=== PATIENT | female | born 1935 | race Hispanic/Latino ===

== ENCOUNTER 2018-01-17 22:57 | Emergency (ER) | payer MEDICARE, MEDICAID ==
[2018-01-18] MEDS ORDERED: Cyclobenzaprine 10 MG TAB ONE (00:20)
[2018-01-18] MEDS ORDERED: Dexamethasone 4 mg/ml Vial ONE (00:20)
[2018-01-18] MEDS ORDERED: Ketorolac Tromethamine 30 MG/ML VIAL ONE (00:20)
== END 2018-01-18 00:43 | disposition home or self-care (01) ==
LOC: ERS 22:57
DX: M62.838 Other muscle spasm (principal); E78.5 Hyperlipidemia, unspecified; I10 Essential (primary) hypertension; Z79.82 Long term (current) use of aspirin; Z79.899 Other long term (current) drug therapy
CPT/HCPCS: 96372; J1100; J1885

== ENCOUNTER 2018-01-20 11:54 | Outpatient (CLI) | payer MEDICARE, MEDICAID ==
--- NOTE | 2018-01-20 15:04 | MRI ---
MRI CERVICAL SPINE WITHOUT CONTRAST: Date: 01/20/18 HISTORY: M54.12, cervical radiculopathy. COMPARISON: None. FINDINGS: The background marrow signal is normal. Marrow signal of the clivus is normal. There appears to be an empty sella with flattening of the pituitary gland. Levels are as follows: C2-3: Mild disc desiccation. Moderate facet arthropathy. No significant neural foraminal or spinal canal na rrowing. C3-4: Mild degenerative disc space height loss. There is moderate facet arthrosis bilaterally. There is mod erate left and mild right-sided neural foraminal narrowing. Low grade circumferential disc bulge. Spi nal canal is not significantly narrowed. C4-5: Moderate degenerative disc space disease. Moderate uncinate process hypertrophy. Moderate facet arthr opathy. The spinal canal measures approximately 7.0 mm. There is moderate left and mild right-sided n eural foraminal narrowing. C5-6: Advanced degenerative disc space disease. Uncinate process hypertrophy. The spinal canal measures madelaine roximately 6.0 mm. Mild ligamentum flavum hypertrophy. Mild bilateral neural foraminal narrowing. C6-7: Mild disc desiccation. No significant neural foraminal or spinal canal narrowing. C7-T1: There is anterolisthesis of C7 over T1 approximately 4.0 mm with moderate facet arthrosis. Spinal can al centrally narrowed. IMPRESSION: Mild to moderate spondylosis as described above, worst at C5-6, with near complete effacement of the dorsal and ventral CSF space narrowing the spinal canal just under 6 mm. POS: [facility]
== END 2018-01-20 11:55 | disposition home or self-care (01) ==
LOC: MRI 11:54
PROVIDERS: ATTEND Family Medicine
DX: M47.22 Other spondylosis with radiculopathy, cervical region (principal); M48.02 Spinal stenosis, cervical region
CPT/HCPCS: 72141

== ENCOUNTER 2018-03-24 11:46 | Outpatient (CLI) | payer MEDICARE, MEDICAID | END 2018-03-24 11:47 | disposition home or self-care (01) | LOC: BICRAD 11:46 | PROVIDERS: ATTEND Specialist | DX: M47.892 Other spondylosis, cervical region (principal); M43.12 Spondylolisthesis, cervical region; M48.02 Spinal stenosis, cervical region | CPT/HCPCS: 72050 ==

== ENCOUNTER 2019-03-06 14:19 | Outpatient (CLI) | payer MEDICARE ==
--- NOTE | 2019-03-06 15:03 | BD ---
EXAM: Bone densitometry using DEXA HISTORY: 83 yo female. Screening for postmenopausal osteoporosis FINDINGS: L1--bone mineral density 0.704 g/sq cm; T score -2.6 ; Z score -0.1 L2--bone mineral density 0.628 g/sq cm; T score -3.6 ; Z score -0.9 L3--bone mineral density 0.551 g/sq cm; T score -4.8 ; Z score -2.0 L4--bone mineral density 0.445 g/sq cm; T score -5.6 ; Z score -2.6 Total L1-L4--bone mineral density 0.581 g/sq cm; T score -4.2 ; Z score -1.5 Left femoral neck--bone mineral density0.505; T score -3.1 ; Z score -0.7 Total proximal left femur--bone mineral density 0.637; T score -2.5 ; Z score -0.2 There has been an interval improvement of 11.2% in the BMD of the lumbar spine since the previous leanna dy of 02/10/2008. The 10 year fracture risk for a major osteoporotic fracture is 18% and for a hip fracture is 7.8%. IMPRESSION: Osteoporosis
== END 2019-03-06 14:20 | disposition home or self-care (01) ==
LOC: BICMAMMO 14:19
PROVIDERS: ATTEND Internal Medicine Rheumatology
DX: M81.0 Age-related osteoporosis without current pathological fracture (principal); E55.9 Vitamin D deficiency, unspecified
CPT/HCPCS: 36415; 77080; 80053; 82306; 83970

== ENCOUNTER 2020-07-15 13:28 | Outpatient (CLI) | payer MEDICARE, OTHER ==
--- NOTE | 2020-07-15 15:37 | MRI ---
MRI LUMBAR SPINE NONCONTRAST: DATE: 07/15/2020. HISTORY: An 84-year-old female with ICD-10: M54.16, lumbar radiculopathy. COMPARISON: None. FINDINGS: For the purposes of this report, it will be assumed that there are 5 lumbar-type vertebrae. Beginnin g at approximately L3, the lower spinal cord is partially divided into equal-sized right and left com ponents. At the lower L2 level, the bridging parenchyma between the right and left sides is very thi n in the AP dimension, only a few millimeters. The bridge is much thicker at levels superior and inf erior to this. The conus medullaris terminates at an abnormally low level, L3-4. No syrinx. The spi nal canal and thecal sac are very large in caliber from L3 through S1-2. The L3 and L4 vertebral bod ies are partially fused with each other, with a hypoplastic intervertebral disk between them, and the presence of bony bridges between the vertebral bodies. The L3 and L4 vertebral bodies are abnormall y lengthened in the craniocaudal dimensions and slightly narrowed in the AP dimensions. Their field traffic investigator ior elements are also at least partially fused. There is no central spinal canal stenosis at any lev el. There is neural foraminal stenosis that is mild to moderate on the right at L1-2, moderate on th e right at L2-3, and high grade on the right at L5-S1, with the superior surface of the exiting right L5 nerve root contacting the right L5 pedicle and the inferior surface of that nerve root contacting the end plates (the right L5-S1 neural foramen is very narrowed craniocaudally, but not in the AP di mension). There is moderate left neural foraminal stenosis at L1-2 and L2-3. There is right L5 pars interarticularis defect, but no left pars defect there. There is a grade I or II anterolisthesis of L5 on S1. There are disk bulges at T12-L1, L1-2, L2-3, and L5-S1. IMPRESSION: 1. 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 2. 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 3. 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 4. Grade I or II spondylolisthesis at L5-S1 with unilateral right L5 spondylolysis. 5. Multilevel neural foraminal stenosis, most notably on the right L5-S1 with chronic impingement on the exiting right L5 nerve root. 6. No central spinal canal stenosis at any level. ANA Fung POS: [facility]
== END 2020-07-15 13:29 | disposition home or self-care (01) ==
LOC: BICMRI 13:28
PROVIDERS: ATTEND Family Medicine
DX: M47.26 Other spondylosis with radiculopathy, lumbar region (principal); Q06.2 Diastematomyelia; M43.26 Fusion of spine, lumbar region; M43.17 Spondylolisthesis, lumbosacral region; M48.061 Spinal stenosis, lumbar region without neurogenic claudication; M25.80 Other specified joint disorders, unspecified joint
CPT/HCPCS: 36415; 72148; 80053; 82306; 83970

== ENCOUNTER 2023-07-05 07:49 | Outpatient (CLI) | payer OTHER, MEDICAID ==
[2023-07-05] MEDS ORDERED: Iopamidol 370 76% 100 ML VIAL ONE (09:41)
[2023-07-05] MEDS ORDERED: GASTROGRAFIN 30 ML BOT ONE (09:41)
== END 2023-07-05 07:50 | disposition home or self-care (01) ==
LOC: CT 07:49
PROVIDERS: ATTEND Family Medicine
DX: R10.32 Left lower quadrant pain (principal); K44.9 Diaphragmatic hernia without obstruction or gangrene; K76.89 Other specified diseases of liver
CPT/HCPCS: 74177; 82565; Q9963; Q9967

== ENCOUNTER 2024-06-13 15:42 | Outpatient (CLI) | payer OTHER, MEDICARE | END 2024-06-13 15:43 | disposition home or self-care (01) | LOC: SCSRAD 15:42 | DX: R05.1 Acute cough (principal); J02.9 Acute pharyngitis, unspecified | CPT/HCPCS: 71046; 87070; 87635 ==

== ENCOUNTER 2024-08-01 15:51 | Outpatient (CLI) | payer OTHER, MEDICAID | END 2024-08-01 15:52 | disposition home or self-care (01) | LOC: BICMAMMO 15:51 | PROVIDERS: ATTEND Internal Medicine Rheumatology | DX: M81.8 Other osteoporosis without current pathological fracture (principal) | CPT/HCPCS: 77080 ==